=== PATIENT | male | born 1980 | race Caucasian/White ===

== ENCOUNTER → 2019-08-15 08:56 | Outpatient (BNVA) | payer MEDICARE, MEDICAID, SELFPAY | PROVIDERS: Visit Provider Nurse Practitioner Gerontology | DX: Z30.9 Encounter for contraceptive management, unspecified (principal); R31.29 Other microscopic hematuria; N50.89 Other specified disorders of the male genital organs; N48.6 Induration penis plastica; I10 Essential (primary) hypertension | CPT/HCPCS: 81003; 99204 ==

== ENCOUNTER 2019-08-15 10:43 | Outpatient (REF) | payer MEDICARE, MEDICAID, SELFPAY ==
[2019-08-15 11:54] LABS: Bilirubin Negative (Negative); Blood Large (Negative); Clarity Clear (Clear); Glucose Negative (Negative); Ketones Negative (Negative); Leukocyte Esterase Negative (Negative); Nitrite Negative (Negative); Urobilinogen 0.2 EU/dL (Up TO 0.2)
[2019-08-15 12:12] LABS: Epithelial Cells Few HPF (Negative); RBC >50 (0-2); WBC 0-2 HPF (0-5)
[2019-08-15 12:13] LABS: Bacteria Negative HPF (Negative); C & S Indicated? No; Casts Negative LPF (Negative); Crystals Negative HPF (Negative); Mucus Negative (Negative)
== END 2019-08-15 11:03 ==
LOC: LBN 10:43
PROVIDERS: Visit Provider Nurse Practitioner Gerontology
DX: R31.0 Gross hematuria (principal)
CPT/HCPCS: 81003; 81015

== ENCOUNTER 2019-09-11 00:44 | Outpatient (CLI) | payer MEDICARE, MEDICAID, SELFPAY ==
--- NOTE | 2019-09-11 10:01 | DI.CT_ITS ---
EXAM: CT ABDOMEN PELVIS WO/W CLINICAL HISTORY: gross hematuria R31.9. TECHNIQUE: COMPARISON: No exams were available for comparison FINDINGS: CT examination of the abdomen and pelvis was performed with bolus infusion of 100 cc of Omnipaque 350 . Images obtained through the lung bases are unremarkable. Liver and spleen appear normal as does t he pancreas. Gallbladder has been surgically removed. No biliary dilatation seen. Adrenals are unr emarkable in appearance bilaterally. Multiple small presumed renal cysts noted. No urinary tract ca lcification or obstruction. No significant abdominal wall hernia. No abdominal or pelvic adenopathy . Appendix is normal. No evidence of bowel obstruction. There is wall thickening of gastric antrum duodenum and proximal small bowel which is nonspecific, co nsider enteritis. IMPRESSION: Wall thickening gastric antrum proximal small no evidence of obstruction. Findings may represent ent eritis please correlate Renal cysts are noted. There is no evidence urinary tract calcification or obstruction.
[2019-09-11] MEDS: Omnipaque 350 MG/ML 100 ML BTL IV (10:39)
== END 2019-09-11 01:04 ==
PROVIDERS: PCP Physician Assistant; Visit Provider Nurse Practitioner Gerontology
DX: R31.0 Gross hematuria (principal); N28.1 Cyst of kidney, acquired; K31.89 Other diseases of stomach and duodenum
CPT/HCPCS: 74178; J3490

== ENCOUNTER → 2020-06-19 13:20 | Outpatient (BNVA) | payer MEDICARE, MEDICAID, SELFPAY | PROVIDERS: PCP Physician Assistant; Referring Provider Physician Assistant; Visit Provider Nurse Practitioner Gerontology | DX: Z30.09 Encounter for other general counseling and advice on contraception (principal); I10 Essential (primary) hypertension; F11.90 Opioid use, unspecified, uncomplicated | CPT/HCPCS: 99214 ==

== ENCOUNTER 2021-12-23 02:11 | Outpatient (CLI) | payer MEDICARE, MEDICAID, SELFPAY ==
--- NOTE | 2021-12-23 | DI.NM_ITS ---
APPROVED REPORT Exam: Exercise Treadmill Patient Location: Out-Patient Room/Bed: Stress Nurse: Stephie Maher RN Ordering Provider:ROSS CARREON MD Contact Number: [phone] BMI: 26.57 Baseline Rhythm: Sinus Rhythm Comment: diffuse ST elevations (no change from EKG 12/18 in ED) Indications: Chest pain Medical History Medical History: Hypertension, hyperlipidemia, smoker (current), opiod dependence, gerd, bipolar diso rder I, ANDREW Cardiac Medications: Amlodipine, lisinopril, metoprolol succinate, clopidogrel, atorvastatin, chlorth alidone, furosemide, omeprazole, methadone, dextroamphetamine, epinephrine, nitroglycerin Allergies: NSAIDs, diazepam, seafood, lithiu,, cyclobenzaprine, carbamazepine Cardiac Risk Factors: Hypertension, hyperlipidemia, smoker (current), family hx Previous Cardiac Procedures: None Pretest Chest Pain Characteristics: None Exercise History: Physically active Physical Disabilities: None Lung Sounds: Clear to auscultation, Clear to auscultation Heart Sounds: Regular Stress Test Details Test: Exercise stress testing was performed using a Jose Alejandro protocol. Nuclear Acquisition: Rest Tc-99m/Stress Tc-99m 1 day Rest Isotope: Tc-99m Sestamibi. Dose: 10.7 Date: 12/23/2021 Injection Time: 0850 Stress Isotope: Tc-99m Sestamibi. Dose: 31.8 Date: 12/23/2021 Injection Time: 1010 HR Resting HR Supine: 93 bpm Max Heart Rate (APMHR): 177.083271 bpm Resting HR Standin bpm Target HR (85% APMHR): 150.788170 bpm Max HR Achieved: 179 bpm % of APMHR: 101.13 Recovery HR: 115 bpm HR response to stress: Normal HR response to stress Comment: Metoprolol succinate held for 24 hrs BP Resting BP Supine: 158/102 mmHg Resting BP Standin/104 mmHg Max BP: 188/104 mmHg Recovery BP: 144/76 mmHg BP response to stress: Normal blood pressure response to stress. Comment: Pt held all BP medications for 24 hrs ECG Resting ECG: Sinus Rhythm Ectopy: None Comment: diffuse ST elevations (no change from EKG 12/18 in ED) Stress ECG: Sinus Tachycardia ST Change: No significant ST segment changes noted Arrhythmia: Occasional PACs Recovery ECG: Sinus Rhythm Recovery ST Change: No significant ST segment changes noted Recovery Arrhythmia: Occasional PACs, decreased in frequency during recovery Clinical Reason for Termination: Stopped by stress RN due to safety concerns on treadmill Stress Symptoms: General Fatigue, Chest pain, Dyspnea Exercise duration: 9 min49 sec Highest Stage Reached: Stage 4: 4.2 mph at 16% grade. Exercise capacity: 11.51 METs Foley Treadmill Score: 3.7 Rate Pressure Product: [id number] Stress ECG Conclusion 1. Resting electrocardiogram showed voltage for left ventricular hypertrophy 2. Patient exercised on the Jose Alejandro protocol and completed a workload of 11.51 METS 3. Normal heart rate and blood pressure response to exercise. The patient achieved 100% of predicted heart rate for age 4. Electrocardiographically there was no evidence of myocardial ischemia 5. Atrial premature beats were noted Foley Treadmill Score is 3.7 which is Moderate risk. Stress Test Summary STAGE Time (mins) Speed (mph) Grade (%) HR BP SYMPTOMS METS Supine 93 158/102 Standing 102 162/104 SpO2 98% 1 3 1.7 10 122 172/102 SpO2 96% 4.6 2 6 2.5 12 145 178/106 SpO2 96% 7 3 9 3.4 14 176 184/106 Mild SOB, SpO2 97% 10.2 4 12 4.2 16 174 Chest pain 4/10, severe SOB, SpO2 96% 12.9 1 min recovery 167 188/104 CP 2/10, SOB moderate, SpO2 96% 3 min recovery 132 178/82 1/10 CP, SOB mild, SpO2 97% 6 min recovery 121 144/76 CP resolved, SOB resolved, SpO2 96% 9 min recovery 117 SpO2 95% 12 min recovery 119 SpO2 96% 15 min recovery 115 SpO2 96% 20 min recovery 115 SpO2 96% Pt reported 4/10 chest pain and severe SOB in fourth stage of exercise. Resolved by minute 6 of recov cristy. MPI Conclusion Normal myocardial perfusion without evidence of ischemia or prior infarction EF was 36%. There were no segmental wall motion abnormalities Radiologist Interpretation Radiologist Interpretation by: Lorenzo Gamez MD Interpretation Date/Time: 12/25/2021 16:54:42
== END 2021-12-23 02:31 ==
PROVIDERS: PCP Physician Assistant; Visit Provider Internal Medicine Interventional Cardiology
DX: R07.9 Chest pain, unspecified (principal); I10 Essential (primary) hypertension; E78.5 Hyperlipidemia, unspecified; F17.210 Nicotine dependence, cigarettes, uncomplicated; Z82.49 Family history of ischemic heart disease and other diseases of the circulatory system; I49.1 Atrial premature depolarization
CPT/HCPCS: 78452; 93016; 93018; 93017